=== PATIENT | female | born 1970 | race Caucasian/White ===

== ENCOUNTER → 2024-01-16 16:38 | Outpatient (REF) | payer OTHER, SELFPAY | LOC: WDC 16:38 | PROVIDERS: ATTENDING PHYSICIAN Internal Medicine | DX: Z12.31 Encounter for screening mammogram for malignant neoplasm of breast (principal) | CPT/HCPCS: 77063; 77067 ==

== ENCOUNTER → 2024-01-18 11:20 | Outpatient (REF) | payer OTHER, SELFPAY | LOC: HWRAD 11:20 | PROVIDERS: ATTENDING PHYSICIAN Internal Medicine | DX: Z87.891 Personal history of nicotine dependence (principal) | CPT/HCPCS: 71271 ==

== ENCOUNTER 2024-03-28 07:37 | Outpatient (RCR) | payer OTHER, SELFPAY ==
[2024-03-28 07:45] VITALS: BP 98/61
[2024-03-28] MEDS: CORTROSYN 1 MG IV (08:27)
[2024-03-28 09:28] LABS: ACTH Stim Cortisol 0 Min 7.9 ug/dl
[2024-03-28 09:50] VITALS: BP 110/57
[2024-03-28 10:56] LABS: ACTH Stim Cortisol 60 Min 21.5 ug/dl
[2024-03-28 11:05] LABS: ACTH Stim Cortisol 30 Min 20.3 ug/dl
== END 2024-03-29 10:01 | disposition home or self-care (01) ==
LOC: OID 07:37
PROVIDERS: ATTENDING PHYSICIAN Internal Medicine; FAMILY PHYSICIAN Internal Medicine
DX: I95.9 Hypotension, unspecified (principal)
CPT/HCPCS: 36415; 82533; 96374

== ENCOUNTER → 2025-01-16 16:19 | Outpatient (REF) | payer OTHER, SELFPAY | LOC: WDC 16:19 | PROVIDERS: ATTENDING PHYSICIAN Physician Assistant Medical | DX: Z12.31 Encounter for screening mammogram for malignant neoplasm of breast (principal) | CPT/HCPCS: 77063; 77067 ==

== ENCOUNTER → 2025-03-05 14:52 | Outpatient (REF) | payer OTHER, SELFPAY | LOC: HWRCS 14:52 | PROVIDERS: ATTENDING PHYSICIAN Internal Medicine Cardiovascular Disease; FAMILY PHYSICIAN Physician Assistant Medical | DX: R00.1 Bradycardia, unspecified (principal); I95.0 Idiopathic hypotension | CPT/HCPCS: 93306 ==